=== PATIENT | male | born 1940 | race Caucasian/White ===

== ENCOUNTER 2017-05-03 02:56 | Emergency (ER) | payer MEDICARE ==
[2017-05-03] VITALS (8 sets, daily range): BP systolic 168–182; BP diastolic 73–90; PULSE 44–54; RESP 16–22; TEMP 97.3–97.7; O2SAT 97–99
[~2017-05-03] VITALS: Ht 185.4 cm; Wt 89.9 kg
[~2017-05-03 02:56] MED LIST: ASPI81 PO; LEVO75TA41 PO; LIPI80TA16 PO; MAGN400T19 PO; OMEG1CAP53 PO; OMEP20TA PO; RAMI10CA PO; SERT50 PO; TAB-TAB PO; TRIL135C PO; VITA100018 OR
[2017-05-03] MEDS ORDERED: SODIUM CHLOR 0.9% 1000 ML INJ 1,000 ML IV SCH (03:38)
--- NOTE | 2017-05-03 03:41 | PD ---
HPI Chief Complaint: Abdominal Pain Time Seen by Provider: 03:03 Travel History International Travel<30 days: No Contact w/Intl Traveler<30days: No Traveled to known affect area: No History of Present Illness HPI 76-year-old male presents to the emergency department for severe abdominal pain since 12:30 AM. Patient has had episode of vomiting. No report of hematemesis coffee-ground emesis or bilious emesis. Patient's had no diarrhea. Patient denies previous abdominal surgery. Patient does have history of hypertension and hypothyroidism. Patient denies tobaccoism. Patient denies any chest pain or shortness of breath. Patient's had no diaphoresis. Patient denies referred neck jaw back shoulder or arm pain. Patient does have history of CAD with prior CABG. Patient rates pain as 10 over 10 intensity. PFSH Past Medical History Narrative Medical CAD, [place], CABG, left lower lobe lobectomy, hypertension, impingement syndrome, orthopedic surgery; no tobacco use; nursing notes reviewed Cardiovascular Problems: Yes (HI) Medical other: Yes (IMPINGEMENT SYNDROME) Immunizations Current: Yes Tetanus Vaccination: Unknown Influenza Vaccination: No Past Surgical History Eye Surgery: Yes (CATARACT X 2) Genitourinary Surgery: Yes (PROSTATE CA) Thoracic Surgery: Yes (LLL LOBECTOMY, CABG X 3) Tonsillectomy: Yes Social History Alcohol Use: No Tobacco Use: No Substance Use: No Allergies-Medications (Allergen,Severity, Reaction): Coded Allergies: No Known Allergies (Verified Adverse Reaction, Unknown, 05/03/17) Reported Meds & Prescriptions Reported Meds & Active Scripts Active Narrative Medication Lisinopril Review of Systems Except as stated in HPI: all other systems reviewed are Neg Physical Exam Narrative GENERAL: Well-developed well-nourished male in obvious discomfort holding his abdomen. SKIN: Warm and dry. HEAD: Normocephalic. EYES: No scleral icterus. No injection or drainage. NECK: Supple, trachea midline. No JVD or lymphadenopathy. CARDIOVASCULAR: Decreased Regular rate and rhythm without murmurs, gallops, or rubs. RESPIRATORY: Breath sounds equal bilaterally. No accessory muscle use. GASTROINTESTINAL: Abdomen soft, right upper quadrant greater than right lower quadrant tenderness with voluntary guarding no rebound, nondistended. No palpable pulsatile mass. MUSCULOSKELETAL: No cyanosis, or edema. Bilateral radial and dorsalis pedis pulses 2+ to palpation. BACK: Nontender without obvious deformity. No CVA tenderness. Data Data Last Documented VS Vital Signs Date Time Temp Pulse Resp B/P (MAP) Pulse Ox O2 Delivery O2 Flow Rate FiO2 05/03/17 05:35 48 16 168/88 (114) 97 Room Air 05/03/17 03:24 97.6 Orders Orders Complete Blood Count With Diff (05/03/17 03:38) Comprehensive Metabolic Panel (05/03/17 03:38) Lipase (05/03/17 03:38) Prothrombin Time / Inr (Pt) (05/03/17 03:38) Act Partial Throm Time (Ptt) (05/03/17 03:38) Urinalysis - C+S If Indicated (05/03/17 03:38) Ct Abd/Pel W Iv Contrast(Rout) (05/03/17 03:38) Iv Access Insert/Monitor (05/03/17 03:38) Ecg Monitoring (05/03/17 03:38) Oximetry (05/03/17 03:38) Morphine Inj (Morphine Inj) (05/03/17 03:45) Ondansetron Inj (Zofran Inj) (05/03/17 03:45) Sodium Chlor 0.9% 1000 Ml Inj (Ns 1000 M (05/03/17 03:38) Sodium Chloride 0.9% Flush (Ns Flush) (05/03/17 03:45) Electrocardiogram (05/03/17 03:38) Chest, Single Ap (05/03/17 03:38) NPO (05/03/17 03:38) Type And Screen (05/03/17 03:39) Morphine Inj (Morphine Inj) (05/03/17 04:15) Iohexol 350 Inj (Omnipaque 350 Inj) (05/03/17 04:30) Troponin I (05/03/17 03:51) Hydromorphone Pf Inj (Dilaudid Pf Inj) (05/03/17 05:30) Ketorolac Inj (Toradol Inj) (05/03/17 07:00) Labs Laboratory Tests Test 05/03/17 03:51 05/03/17 05:32 White Blood Count 5.7 TH/MM3 Red Blood Count 5.00 MIL/MM3 Hemoglobin 15.0 GM/DL Hematocrit 44.6 % Mean Corpuscular Volume 89.2 FL Mean Corpuscular Hemoglobin 29.9 PG Mean Corpuscular Hemoglobin Concent 33.5 % Red Cell Distribution Width 12.7 % Platelet Count 215 TH/MM3 Mean Platelet Volume 9.2 FL Neutrophils (%) (Auto) 64.0 % Lymphocytes (%) (Auto) 24.3 % Monocytes (%) (Auto) 8.7 % Eosinophils (%) (Auto) 2.5 % Basophils (%) (Auto) 0.5 % Neutrophils # (Auto) 3.7 TH/MM3 Lymphocytes # (Auto) 1.4 TH/MM3 Monocytes # (Auto) 0.5 TH/MM3 Eosinophils # (Auto) 0.1 TH/MM3 Basophils # (Auto) 0.0 TH/MM3 CBC Comment DIFF FINAL Differential Comment Prothrombin Time 10.4 SEC Prothromb Time International Ratio 1.0 RATIO Activated Partial Thromboplast Time 25.0 SEC Blood Urea Nitrogen 22 MG/DL Creatinine 0.99 MG/DL Random Glucose 119 MG/DL Total Protein 7.5 GM/DL Albumin 3.6 GM/DL Calcium Level 8.8 MG/DL Alkaline Phosphatase 159 U/L Aspartate Amino Transf (AST/SGOT) 39 U/L Alanine Aminotransferase (ALT/SGPT) 61 U/L Total Bilirubin 0.8 MG/DL Sodium Level 138 MEQ/L Potassium Level 3.7 MEQ/L Chloride Level 102 MEQ/L Carbon Dioxide Level 26.1 MEQ/L Anion Gap 10 MEQ/L Estimat Glomerular Filtration Rate 73 ML/MIN Troponin I LESS THAN 0.02 NG/ML Lipase 259 U/L Urine Color YELLOW Urine Turbidity CLEAR Urine pH 7.0 Urine Specific [place] GREATER THAN 1.035 Urine Protein NEG mg/dL Urine Glucose (UA) NEG mg/dL Urine Ketones NEG mg/dL Urine Occult Blood NEG Urine Nitrite NEG Urine Bilirubin NEG Urine Leukocyte Esterase NEG Urine RBC 0-3 /hpf Urine WBC 0-2 /hpf Urine Squamous Epithelial Cells 0-5 /hpf Urine Bacteria NONE /hpf Microscopic Urinalysis Comment CULT NOT INDICATED MDM Medical Decision Making Medical Screen Exam Complete: Yes Emergency Medical Condition: Yes Medical Record Reviewed: Yes Interpretation(s) EKG sinus bradycardia rate 42 left axis deviation no acute ST elevation age- indeterminate lateral HI coags: wnl Vital Signs Date Time Temp Pulse Resp B/P (MAP) Pulse Ox O2 Delivery O2 Flow Rate FiO2 05/03/17 04:45 18 12/23/17 04:28 18 99 Room Air 05/03/17 04:11 45 20 170/90 (116) 99 Room Air 05/03/17 04:04 18 05/03/17 03:28 22 05/03/17 03:24 97.6 45 22 180/90 (120) 99 05/03/17 03:02 97.3 44 99 CBC & BMP Diagram 05/03/17 03:51 Total Protein 7.5, Albumin 3.6, Calcium Level 8.8, Alkaline Phosphatase 159 H, Aspartate Amino Transf (AST/SGOT) 39 H, Alanine Aminotransferase (ALT/SGPT) 61, Total Bilirubin 0.8 troponin i: 0.02, not elevated ua: sg 1.035 elevated Differential Diagnosis Abdominal pain cholecystitis abdominal aortic aneurysm pancreatitis appendicitis diverticulitis viscus perforation renal colic Narrative Course IV access obtained patient made nothing by mouth Zofran 4 mg IV administered morphine 3 mg IV administered maintenance IV fluids at 1 25 cc per hour administered patient made nothing by mouth status here pelvis ordered Patient noted to remain in sinus bradycardia states his heart rate normally runs 55-60 patient is monitored with heart rate of 45 EKG shows sinus bradycardia rate of 42 with left axis deviation no acute ST elevation nonspecific ST segment flattening laterally possible age-indeterminate infarct CBC is automated differential values in normal range Complete metabolic panel values grossly within normal limits lipase is normal Patient sent to CT; CT shows distended gallbladder with large single gallstone no ductal dilatation noted Patient continued complaining of pain Dilaudid 0.5 mg administered as he has artery received 6 mg of morphine At 6:[address] as officially read by radiologist identifies mild the distended gallbladder and gallstones in the gallbladder neck no ductal dilatation no wall thickening or pericholecystic fluid noted Pain at rest 2-3/10 in intensity with palpation 5-6/10 in intensity. care signed over to Dr Thomas Physician Communication Physician Communication call placed to employment instructional associate gs: Dr Ghotra Diagnosis Primary Impression: Biliary colic Meeta Holly MD May 03, 2017 03:41
[2017-05-03] MEDS ORDERED: ONDANSETRON HCL 4 MG/2 ML VIAL IVP ONE (03:45)
[2017-05-03] MEDS ORDERED: MORPHINE SULFATE 4 MG/ML INJ IV PUSH ONE ×2 (03:45→04:15)
[2017-05-03] MEDS: SODIUM CHLORIDE 0.9% FLUSH 10 ML FLUSH IV FLUSH PRN ×3 (03:59→07:26)
[2017-05-03 04:00] LABS: AUTOMATED NEUTROPHIL # 3.7 TH/MM3 (1.8-7.7); BASOPHIL % 0.5 % (0.0-2.0); EOSINOPHIL # 0.1 TH/MM3 (0-0.4); EOSINOPHIL % 2.5 % (0.0-4.0); HEMATOCRIT 44.6 % (39.0-51.0); LYMPH % 24.3 % (9.0-44.0); LYMPHOCYTE # 1.4 TH/MM3 (1.0-4.8); MEAN CELL VOLUME 89.2 FL (80.0-100.0); MEAN CORPUSCULAR HEMOGLOBIN 29.9 PG (27.0-34.0); MEAN CORPUSCULAR HGB CONC 33.5 % (32.0-36.0); MEAN PLATELET VOLUME 9.2 FL (7.0-11.0); MONO % 8.7 % (0.0-8.0); MONOCYTE # 0.5 TH/MM3 (0-0.9); PLATELET COUNT 215 TH/MM3 (150-450); RED CELL DISTRIBUTION WIDTH 12.7 % (11.6-17.2); WHITE BLOOD COUNT 5.7 TH/MM3 (4.0-11.0)
[2017-05-03 04:08] LABS: CHLORIDE 102 MEQ/L (98-107); SODIUM (NA) 138 MEQ/L (136-145)
[2017-05-03 04:11] LABS: CALCIUM 8.8 MG/DL (8.5-10.1)
[2017-05-03 04:12] LABS: ALBUMIN 3.6 GM/DL (3.4-5.0); BICARBONATE 26.1 MEQ/L (21.0-32.0); BLOOD UREA NITROGEN 22 MG/DL (7-18); GLUCOSE,RANDOM 119 MG/DL (74-106); LIPASE 259 U/L (73-393); PROTHROMBIN TIME - PATIENT 10.4 SEC (9.8-11.6)
[2017-05-03 04:14] LABS: ALT (GPT) 61 U/L (12-78)
[2017-05-03 04:15] LABS: AST (GOT) 39 U/L (15-37); CREATININE 0.99 MG/DL (0.60-1.30); GLOMERULAR FILTRATION RATE 73 ML/MIN (>89)
[2017-05-03 04:16] LABS: TOTAL BILIRUBIN ADULT 0.8 MG/DL (0.2-1.0); TOTAL PROTEIN 7.5 GM/DL (6.4-8.2)
[2017-05-03 04:17] LABS: ALKALINE PHOSPHATASE 159 U/L (45-117)
[2017-05-03] MEDS ORDERED: IOHEXOL 350 MG/ML 10 ML VIAL (for RAD DIAG) IVCONTRAST ONE (04:30)
[2017-05-03 05:30] LABS: TROPONIN I LESS THAN 0.02 NG/ML (0.02-0.05)
[2017-05-03] MEDS ORDERED: HYDROmorphone HCL PF 2 MG/ML VIAL IV PUSH ONE (05:30)
[2017-05-03 05:37] LABS: BILIRUBIN, URINE NEG (NEG); BLOOD, URINE NEG (NEG); GLUCOSE,URINE NEG (NEG); KETONE, URINE NEG (NEG); NITRITE,URINE NEG (NEG); URINE LEUKOCYTE ESTERASE NEG (NEG)
[2017-05-03 05:38] LABS: URINE COLOR YELLOW (YELLW/STRAW)
[2017-05-03 05:41] LABS: RBC, URINE 0-3 /hpf (0-3); SQUAMOUS EPITHELIAL CELL URINE 0-5 /hpf (0-5); WBC, URINE 0-2 /hpf (0-5)
--- NOTE | 2017-05-03 06:08 | RADRPT ---
EXAM DATE/TIME: 05/03/2017 04:28 [facility] COMPARISON: No previous studies available for comparison. INDICATIONS : Nausea, vomiting and abdominal pain for 4 hours IV CONTRAST: 96 cc Omnipaque 350 (iohexol) IV ORAL CONTRAST: No oral contrast ingested. RADIATION DOSE: 15.77 CTDIvol (mGy) MEDICAL HISTORY : Carcinoma, prostate. Cardiovascular disease SURGICAL HISTORY : Tonsillectomy. CABG ENCOUNTER: Initial ACUITY: 1 day PAIN SCALE: 10/10 LOCATION: abdominal TECHNIQUE: Volumetric scanning of the abdomen and pelvis was performed. Using automated exposure control and ad justment of the mA and/or kV according to patient size, radiation dose was kept as low as reasonably achievable to obtain optimal diagnostic quality images. DICOM format image data is available electro nically for review and comparison. FINDINGS: LOWER LUNGS: Scarring or atelectasis in both lung bases. Mild bronchiectasis. LIVER: Homogeneous density without lesion. There is no dilation of the biliary tree. Mildly distended gallb ladder with calcified stone in the gallbladder neck. SPLEEN: Normal size without lesion. PANCREAS: Within normal limits. KIDNEYS: Bilateral cortical cysts. No stone or hydronephrosis. ADRENAL GLANDS: Within normal limits. VASCULAR: There is no aortic aneurysm. BOWEL/MESENTERY: Distal colonic diverticula. No abnormal dilatation, wall thickening or focal inflammatory changes. Sm all hiatal hernia. ABDOMINAL WALL: Within normal limits. RETROPERITONEUM: There is no lymphadenopathy. BLADDER: No wall thickening or mass. REPRODUCTIVE: Prostate fiducials. No pelvic mass or free fluid. INGUINAL: There is no lymphadenopathy or hernia. MUSCULOSKELETAL: Within normal limits for patient age. CONCLUSION: Gallstone. Lung bases are atelectasis. Renal cysts. Wilner Gracia MD on May 03, 2017 at 6:03 Board Certified Radiologist. This report was verified electronically.
--- NOTE | 2017-05-03 06:51 | RADRPT ---
EXAM DATE/TIME: 05/03/2017 05:54 [facility] COMPARISON: CT ABDOMEN & PELVIS W CONTRAST, May 03, 2017, 4:28. INDICATIONS : Shortness of breath. MEDICAL HISTORY : None. SURGICAL HISTORY : CABG. ENCOUNTER: Initial ACUITY: 1 day PAIN SCORE: 3/10 LOCATION: Bilateral chest FINDINGS: Minimal bibasilar parenchymal opacity. Cardiac contours are satisfactory. Sternotomy wires are noted. CONCLUSION: Minimal basilar parenchymal opacities. Wilner Gracia MD on May 03, 2017 at 6:48 Board Certified Radiologist. This report was verified electronically.
[2017-05-03] MEDS ORDERED: KETOROLAC TROMETHAMINE 30 MG/ML (IVP) VIAL IV PUSH ONE (07:00)
--- NOTE | 2017-05-03 07:19 | PD ---
HPI Chief Complaint: Abdominal Pain Time Seen by Provider: 07:14 Travel History International Travel<30 days: No Contact w/Intl Traveler<30days: No Traveled to known affect area: No History of Present Illness HPI Care assumed from Dr. Holly, please see previous note IV access obtained patient made nothing by mouth Zofran 4 mg IV administered morphine 3 mg IV administered maintenance IV fluids at 1 25 cc per hour administered patient made nothing by mouth status here pelvis ordered Patient noted to remain in sinus bradycardia states his heart rate normally runs 55-60 patient is monitored with heart rate of 45 EKG shows sinus bradycardia rate of 42 with left axis deviation no acute ST elevation nonspecific ST segment flattening laterally possible age-indeterminate infarct CBC is automated differential values in normal range Complete metabolic panel values grossly within normal limits lipase is normal Patient sent to CT; CT shows distended gallbladder with large single gallstone no ductal dilatation noted Patient continued complaining of pain Dilaudid 0.5 mg administered as he has artery received 6 mg of morphine At 6:[address] as officially read by radiologist identifies mild the distended gallbladder and gallstones in the gallbladder neck no ductal dilatation no wall thickening or pericholecystic fluid noted Pain at rest 2-3/10 in intensity with palpation 5-6/10 in intensity PFSH Past Medical History Cardiovascular Problems: Yes (CT) Medical other: Yes (IMPINGEMENT SYNDROME) Immunizations Current: Yes Tetanus Vaccination: Unknown Influenza Vaccination: No Past Surgical History Eye Surgery: Yes (CATARACT X 2) Genitourinary Surgery: Yes (PROSTATE CA) Thoracic Surgery: Yes (LLL LOBECTOMY, CABG X 3) Tonsillectomy: Yes Social History Alcohol Use: No Tobacco Use: No Substance Use: No Allergies-Medications (Allergen,Severity, Reaction): Coded Allergies: No Known Allergies (Verified Adverse Reaction, Unknown, 05/03/17) Reported Meds & Prescriptions Reported Meds & Active Scripts Active Review of Systems General / Constitutional: No: Fever Eyes: No: Visual changes HENT: No: Headaches Cardiovascular: No: Chest Pain or Discomfort Respiratory: No: Shortness of Breath Gastrointestinal: Positive: Abdominal Pain Genitourinary: No: Dysuria Musculoskeletal: No: Pain Skin: No Rash Neurologic: No: Weakness Psychiatric: No: Depression Endocrine: No: Polydipsia Hematologic/Lymphatic: No: Easy Bruising Physical Exam Narrative GENERAL: Well-nourished, well-developed patient. SKIN: Focused skin assessment warm/dry. HEAD: Normocephalic. EYES: No scleral icterus. No injection or drainage. NECK: Supple, trachea midline. No JVD or lymphadenopathy. CARDIOVASCULAR: Regular rate and rhythm without murmurs, gallops, or rubs. RESPIRATORY: Breath sounds equal bilaterally. No accessory muscle use. GASTROINTESTINAL: Abdomen soft, non-tender, nondistended. MUSCULOSKELETAL: No cyanosis, or edema. BACK: Nontender without obvious deformity. No CVA tenderness. Data Data Last Documented VS Vital Signs Date Time Temp Pulse Resp B/P (MAP) Pulse Ox O2 Delivery O2 Flow Rate FiO2 05/03/17 07:05 97.7 54 16 182/82 (115) 98 Room Air Orders Orders Complete Blood Count With Diff (05/03/17 03:38) Comprehensive Metabolic Panel (05/03/17 03:38) Lipase (05/03/17 03:38) Prothrombin Time / Inr (Pt) (05/03/17 03:38) Act Partial Throm Time (Ptt) (05/03/17 03:38) Urinalysis - C+S If Indicated (05/03/17 03:38) Ct Abd/Pel W Iv Contrast(Rout) (05/03/17 03:38) Iv Access Insert/Monitor (05/03/17 03:38) Ecg Monitoring (05/03/17 03:38) Oximetry (05/03/17 03:38) Morphine Inj (Morphine Inj) (05/03/17 03:45) Ondansetron Inj (Zofran Inj) (05/03/17 03:45) Sodium Chlor 0.9% 1000 Ml Inj (Ns 1000 M (05/03/17 03:38) Sodium Chloride 0.9% Flush (Ns Flush) (05/03/17 03:45) Electrocardiogram (05/03/17 03:38) Chest, Single Ap (05/03/17 03:38) NPO (05/03/17 03:38) Type And Screen (05/03/17 03:39) Morphine Inj (Morphine Inj) (05/03/17 04:15) Iohexol 350 Inj (Omnipaque 350 Inj) (05/03/17 04:30) Troponin I (05/03/17 03:51) Hydromorphone Pf Inj (Dilaudid Pf Inj) (05/03/17 05:30) Ketorolac Inj (Toradol Inj) (05/03/17 07:00) Labs Laboratory Tests Test 05/03/17 03:51 05/03/17 05:32 White Blood Count 5.7 TH/MM3 Red Blood Count 5.00 MIL/MM3 Hemoglobin 15.0 GM/DL Hematocrit 44.6 % Mean Corpuscular Volume 89.2 FL Mean Corpuscular Hemoglobin 29.9 PG Mean Corpuscular Hemoglobin Concent 33.5 % Red Cell Distribution Width 12.7 % Platelet Count 215 TH/MM3 Mean Platelet Volume 9.2 FL Neutrophils (%) (Auto) 64.0 % Lymphocytes (%) (Auto) 24.3 % Monocytes (%) (Auto) 8.7 % Eosinophils (%) (Auto) 2.5 % Basophils (%) (Auto) 0.5 % Neutrophils # (Auto) 3.7 TH/MM3 Lymphocytes # (Auto) 1.4 TH/MM3 Monocytes # (Auto) 0.5 TH/MM3 Eosinophils # (Auto) 0.1 TH/MM3 Basophils # (Auto) 0.0 TH/MM3 CBC Comment DIFF FINAL Differential Comment Prothrombin Time 10.4 SEC Prothromb Time International Ratio 1.0 RATIO Activated Partial Thromboplast Time 25.0 SEC Blood Urea Nitrogen 22 MG/DL Creatinine 0.99 MG/DL Random Glucose 119 MG/DL Total Protein 7.5 GM/DL Albumin 3.6 GM/DL Calcium Level 8.8 MG/DL Alkaline Phosphatase 159 U/L Aspartate Amino Transf (AST/SGOT) 39 U/L Alanine Aminotransferase (ALT/SGPT) 61 U/L Total Bilirubin 0.8 MG/DL Sodium Level 138 MEQ/L Potassium Level 3.7 MEQ/L Chloride Level 102 MEQ/L Carbon Dioxide Level 26.1 MEQ/L Anion Gap 10 MEQ/L Estimat Glomerular Filtration Rate 73 ML/MIN Troponin I LESS THAN 0.02 NG/ML Lipase 259 U/L Urine Color YELLOW Urine Turbidity CLEAR Urine pH 7.0 Urine Specific [place] GREATER THAN 1.035 Urine Protein NEG mg/dL Urine Glucose (UA) NEG mg/dL Urine Ketones NEG mg/dL Urine Occult Blood NEG Urine Nitrite NEG Urine Bilirubin NEG Urine Leukocyte Esterase NEG Urine RBC 0-3 /hpf Urine WBC 0-2 /hpf Urine Squamous Epithelial Cells 0-5 /hpf Urine Bacteria NONE /hpf Microscopic Urinalysis Comment CULT NOT INDICATED MDM Medical Decision Making Medical Screen Exam Complete: Yes Emergency Medical Condition: Yes Differential Diagnosis Cholelithiasis, cholecystitis, bradycardia, biliary colic Narrative Course Patient resting comfortably, continues to have a small amount pain, tolerated fluid challenge. Dr Holly spoke to Dr Ghotra / Surgery who agreed to follow up if the patient is discharged. Last 72 hours Impressions Chest X-Ray 05/03/17337 Signed Impressions: Service Date/Time: Wednesday, May 03, 2017 05:54 - CONCLUSION: Minimal basilar parenchymal opacities. Wilner Gracia MD Abdomen/Pelvis CT 05/03/17337 Signed Impressions: Service Date/Time: Wednesday, May 03, 2017 04:28 - CONCLUSION: Gallstone. Lung bases are atelectasis. Renal cysts. Wilner Gracia MD Diagnosis Primary Impression: Biliary colic Patient Instructions: General Instructions Additional Instructions: Encouraged a liquid diet. Encouraged to avoid any fried or fatty foods. Return to emergency room with any onset of new symptoms. Follow-up with surgery / Dr Ghotra on Friday. Med/Other Pt SpecificInfo: Prescription(s) given Scripts Ondansetron (Zofran) 4 Mg Tab 4 MG PO Q6HR Y for NAUSEA OR VOMITING, #30 TAB 0 Refills Prov: Mack Thomas MD 05/03/17 Oxycodone-Acetaminophen (Percocet) 10-325 mg Tab 1 TAB PO Q4H Y for PAIN, #30 TAB 0 Refills Prov: Mack Thomas MD 05/03/17 Disposition: 01 DISCHARGE HOME Condition: Good Mack Thomas MD May 03, 2017 07:19
[2017-05-03] MEDS ORDERED: ZOFR4TAB PO (08:01)
[2017-05-03] MEDS ORDERED: PERC10TA27 PO (08:01)
--- NOTE | 2017-05-05 09:27 | EKG ---
Date Performed: 05/03/2017 Time Performed: 03:46:15 PTAGE: 76 years EKG: SINUS BRADYCARDIA WITH FIRST DEGREE AV BLOCK MARKED LEFT AXIS DEVIATION POSSIBLE RIGHT VENT RICULAR CONDUCTION DELAY LEFT VENTRICULAR HYPERTROPHY AND ST-T CHANGE POSSIBLE LATERAL MYOCARDIAL INF ARCTION ABNORMAL ECG NO PREVIOUS TRACING DOCTOR: Rica Singh Interpretating Date/Time 05/05/2017 09:26:19
== END 2017-05-03 08:44 | disposition home or self-care (01) ==
LOC: PHED 02:56
DX: K80.70 Calculus of gallbladder and bile duct without cholecystitis without obstruction (principal); R11.2 Nausea with vomiting, unspecified; E03.9 Hypothyroidism, unspecified; I10 Essential (primary) hypertension; I25.10 Atherosclerotic heart disease of native coronary artery without angina pectoris; R94.31 Abnormal electrocardiogram [ECG] [EKG]
CPT/HCPCS: 71010; 74177; 80053; 81001; 83690; 84484; 85025; 85610; 85730; 86850; 86900; 86901; 93005; 96374; 96375; 99285; J1170; J1885; J2270; J2405; J7030; Q9967

== ENCOUNTER 2017-05-06 11:58 | Inpatient (IN) | payer MEDICARE ==
[~2017-05-06] VITALS: Ht 185.4 cm; Wt 89.0 kg
[~2017-05-06 11:58] MED LIST changes: -ASPI81 PO; -LEVO75TA41 PO; -LIPI80TA16 PO; -MAGN400T19 PO; -OMEG1CAP53 PO; -OMEP20TA PO; +PERC10TA27 PO; -RAMI10CA PO; -SERT50 PO; -TAB-TAB PO; -TRIL135C PO; -VITA100018 OR; +ZOFR4TAB PO
[2017-05-06] MEDS ORDERED: LACTATED RINGER'S 1000 ML INJ 1,000 ML IV ONE (12:00)
[2017-05-06] MEDS ORDERED: ePHEDrine/NS 25 MG/5 ML SYRINGE IV ONE (12:00)
[2017-05-06] MEDS ORDERED: DEXAMETHASONE SOD PHOS 4 MG/ML VIAL IV ONE (12:00)
[2017-05-06] MEDS ORDERED: LIDOCAINE HCL 1% PF 5 ML SYRINGE OTHER ONE (12:00)
[2017-05-06] MEDS ORDERED: ONDANSETRON HCL 4 MG/2 ML VIAL IV ONE (12:00)
[2017-05-06] MEDS ORDERED: NEOSTIGMINE 5 MG/5 ML SYRINGE IV PUSH ONE (12:00)
[2017-05-06] MEDS ORDERED: PHENYLEPH/NS 1000 MCG/10 ML SYR IV ONE (12:00)
[2017-05-06] MEDS ORDERED: GLYCOPYRROLATE 1 MG/5 ML SYRINGE IV PUSH ONE (12:00)
[2017-05-06] MEDS ORDERED: ROCURONIUM INJ 50 MG/5 ML SYRINGE IV PUSH ONE (12:00)
[2017-05-06] MEDS ORDERED: PROPOFOL 200 MG/20 ML AMP IV ONE (12:00)
[2017-05-06] MEDS ORDERED: MORPHINE SULFATE 2 MG/ML INJ IV PUSH PRN (12:30)
[2017-05-06] MEDS ORDERED: ONDANSETRON HCL 4 MG/2 ML VIAL IV PUSH PRN (12:30)
[2017-05-06] MEDS ORDERED: SODIUM CHLORIDE 0.9% FLUSH 10 ML FLUSH IV FLUSH PRN (12:30)
[2017-05-06 12:43] VITALS: BP 99/54; PULSE 74; RESP 17; TEMP 96.1; O2SAT 96
[2017-05-06] MEDS: SODIUM CHLOR 0.9% 1000 ML INJ 1,000 ML IV SCH ×2 (13:17→18:39)
[2017-05-06] MEDS: ceFAZolin 2 GM PREMIX 50 ML IV ONE ×2 (13:17→16:34)
[2017-05-06 14:10] LABS: AUTOMATED NEUTROPHIL # 11.1 TH/MM3 (1.8-7.7); BASOPHIL % 0.2 % (0.0-2.0); EOSINOPHIL % 0.1 % (0.0-4.0); HEMATOCRIT 44.4 % (39.0-51.0); HEMOGLOBIN 15.2 GM/DL (13.0-17.0); LYMPH % 1.9 % (9.0-44.0); LYMPHOCYTE # 0.2 TH/MM3 (1.0-4.8); MEAN CELL VOLUME 90.6 FL (80.0-100.0); MEAN CORPUSCULAR HEMOGLOBIN 30.9 PG (27.0-34.0); MEAN CORPUSCULAR HGB CONC 34.1 % (32.0-36.0); MEAN PLATELET VOLUME 9.5 FL (7.0-11.0); MONO % 5.3 % (0.0-8.0); MONOCYTE # 0.6 TH/MM3 (0-0.9); NEUT % 92.5 % (16.0-70.0); PLATELET COUNT 211 TH/MM3 (150-450); RED CELL DISTRIBUTION WIDTH 13.7 % (11.6-17.2)
[2017-05-06 14:27] LABS: INTERNATIONAL NORMALIZED RATIO 1.1 RATIO
[2017-05-06 14:28] LABS: ALBUMIN 2.8 GM/DL (3.4-5.0); ALT (GPT) 59 U/L (12-78); AST (GOT) 67 U/L (15-37); BICARBONATE 26.5 MEQ/L (21.0-32.0); BLOOD UREA NITROGEN 28 MG/DL (7-18); CALCIUM 8.9 MG/DL (8.5-10.1); CHLORIDE 98 MEQ/L (98-107); CREATININE 1.14 MG/DL (0.60-1.30); GLOMERULAR FILTRATION RATE 62 ML/MIN (>89); GLUCOSE,RANDOM 104 MG/DL (74-106); LIPASE 95 U/L (73-393); SODIUM (NA) 132 MEQ/L (136-145)
[2017-05-06 14:30] LABS: ALKALINE PHOSPHATASE 428 U/L (45-117); TOTAL BILIRUBIN ADULT 5.8 MG/DL (0.2-1.0); TOTAL PROTEIN 6.9 GM/DL (6.4-8.2)
[2017-05-06] MEDS ORDERED: BUPIVACAINE/EPINEPHRINE 0.25% PF 30 ML VIAL ONE (14:33)
[2017-05-06 15:35] VITALS: BP 154/71; PULSE 61; RESP 17; TEMP 98.2; O2SAT 93
[2017-05-06] MEDS ORDERED: LACTATED RINGER'S 1000 ML IV PRN (15:45)
[2017-05-06] MEDS ORDERED: SODIUM CHLORID 0.9% 500 ML IV PRN (15:45)
[2017-05-06 16:00] VITALS: BP 154/71; PULSE 61; RESP 17; TEMP 98; O2SAT 93
[2017-05-06] MEDS ORDERED: metroNIDAZOLE 500 MG INJ 100 ML IV ONE (16:34)
[2017-05-06] MEDS ORDERED: ATOR80TA45 PO (16:55)
[2017-05-06] MEDS ORDERED: OMEG1CAP28 PO (16:55)
[2017-05-06] MEDS ORDERED: SERT-132 PO (16:55)
[2017-05-06] MEDS ORDERED: LEVO75TA3 PO (16:55)
[2017-05-06] MEDS ORDERED: ASPI-516 CHEW (16:55)
[2017-05-06] MEDS ORDERED: LISI-515 PO (16:55)
--- NOTE | 2017-05-06 18:00 | RADRPT ---
EXAM DATE/TIME: 05/06/2017 17:36 [facility] COMPARISON: No previous studies available for comparison. INDICATIONS : Acute cholecystitis. FLUORO TIME: 0.07 minutes IMAGE COUNT: 1 MEDICAL HISTORY : Carcinoma, prostate. Cardiovascular disease SURGICAL HISTORY : Tonsillectomy. CABG ENCOUNTER: Initial ACUITY: 3 days PAIN SCORE: Non-responsive. LOCATION: Right upper quadrant abdomen PROCEDURE: CHOLANGIOGRAM, OPERATIVE 1. Intraoperative cholangiogram. In the operating room, the cystic duct stump was injected and radiographs obtained. The examination demonstrates no filling defects in the common bile duct. .CONCLUSION: No evidence of common duct stone. Abhinav Joyce MD on May 06, 2017 at 17:58 Board Certified Radiologist. This report was verified electronically.
[2017-05-06] MEDS ORDERED: DO NOT ADM ANY ANTICOAGULANT DRUGS PRN (18:22)
[2017-05-06] MEDS ORDERED: *morphine SULFATE 4 MG/ML PERIprocedure ONLY ONE (18:26)
--- NOTE | 2017-05-06 18:28 | PD.OP ---
Operative Report Date of Surgery: May 06, 2017 Preoperative Diagnosis: acute and chronic calculous cholecystitis elevated LFTs [facility] Postoperative Diagnosis: same, CBD stones Procedure: Lap eber with IOC. [facility] repair. Anesthesia: general Surgeon: Narinder Jones [employer] Coordinator(s): Arash German Operation and Findings: severe calculous cholecystitis, gangrenous changes. IOC demonstrates several filling defects in CBD, with obstruction. EBL 500 ml. Narinder Jones MD May 06, 2017 18:28
[2017-05-06] MEDS ORDERED: Post-op Orders (for Pharmacy) XX ONE (18:45)
--- NOTE | 2017-05-06 19:55 | MP ---
cc: LISA ENAMORADO MD, LOUIS M. MD DATE OF SURGERY: 05/06/2017 PREOPERATIVE DIAGNOSIS: 1. Acute and chronic calculous cholecystitis, elevated liver function test. 2. Umbilical hernia POSTOPERATIVE DIAGNOSES 1. Acute and chronic calculous cholecystitis, elevated liver function test. 2. Common bile duct stones with common bile duct obstruction. 3. Umbilical hernia. PROCEDURE: 1. Laparoscopic cholecystectomy with intraoperative cholangiography. 2. Open repair, umbilical hernia. SURGEON Dr. Lisa Enamorado ANESTHESIA: General. INDICATIONS: The patient is a pleasant 76 year-old gentleman who was seen in the emergency department on 05/03/2017 in [place] due to severe abdominal pain, nausea, emesis. CT demonstrated distended gallbladder with a gallstone in the gallbladder neck and pericholecystic inflammatory changes. It was decided the patient could go home with Percocet. Since then he has been very ill. He has had minimal oral intake. He came to my office today for evaluation where he was found to have right upper quadrant tenderness and scleral icterus. He is sent over to the hospital for admission, IV hydration and laparoscopic cholecystectomy with intraoperative cholangiography. INTRAOPERATIVE FINDINGS Severe calculous cholecystitis. Gallbladder with gangrenous changes. The gallbladder was very distended attached to the diaphragm on the right side and it was covered in inflammatory omental rind and transverse colon. Intraoperative cholangiogram demonstrated several filling defects in the common bile duct with obstruction of the common bile duct. Gallbladder was removed and sent to pathology. Estimated blood loss 500 mL. 10-Micronesian fluted drain placed in subhepatic position. DESCRIPTION OF PROCEDURE IN DETAIL The patient identified as Kvng Bryant, taken to the operating room, placed in supine position. Sequential compression devices were placed on bilateral lower extremities. Following induction of adequate general endotracheal anesthesia, the patient's abdomen was prepped and draped in usual sterile fashion with Betadine. A time-out procedure was performed. Following completion of time-out procedure to everyone's satisfaction within the room local anesthetic was placed. A supraumbilical transverse incision about 4 cm in length was carried out with a scalpel and the umbilical skin was lifted off the herniated preperitoneal fatty tissue. The umbilical hernia defect was about 2 cm in size. This extended slightly superiorly and the peritoneum entered with the surgeon's finger through the preperitoneal fat. The [employer] Balloon Arizmendi trocar was placed in the peritoneal cavity. It balloon inflated with CO2 insufflation to a level of 15 mmHg ensued. The patient was placed in reverse Trendelenburg position turned to the left and two upper abdominal 5 mm trocars were placed in the peritoneal cavity under direct laparoscopic view after incision of skin with a scalpel. Ultimately a third 5 mm trocar was placed in the right lateral abdomen under direct laparoscopic view after incision of the skin with a scalpel. There was a large omental rind which included the transverse colon which covered the gallbladder which was adherent with gangrenous rind to the right hemidiaphragm. It was able to be mobilized with blunt dissection. The gallbladder brought inferiorly. Using the Obdulia Flex liver retractor, inflammatory rind of fat was retracted inferiorly which allowed for dissection of the gallbladder. In order to facilitate this, the gallbladder was decompressed through an opening in its undersurface using the harmonic scalpel and the suction device. The gallbladder is then removed from the gallbladder fossa in a dome down technique using a harmonic scalpel and suction dissection. This resulted in pretty much continuous ooze until the cystic artery was divided with the harmonic scalpel. The cystic duct was identified at its juncture with the gallbladder and a 5 mm clip was placed across the gallbladder cystic duct junction. The cystic duct was hemisected with a scissor. The percutaneous introducer for the cholangiogram catheter was then placed through a separate small stab incision in the right upper quadrant and the [employer] cholangiogram catheter was placed into the cystic duct. Intraoperative cholangiography was then performed using C-arm fluoroscopy and contrast to fill the proximal ducts which were relatively nondilated but the common bile duct itself was dilated in at least three filling defects approximately 8 millimeters in size were identified consistent with common bile duct stones. No emptying of contrast into the duodenum was witnessed. Cholangiogram catheter was removed. 0-PDS and 0 Vicryl Endoloops were placed across the distal duct and the duct where it was hemisected was completely divided with the harmonic scalpel. The large distended gangrenous gallbladder was then placed into an Endoretriever bag and removed through the umbilical fascial defect which had to be extended superiorly to facilitate removal of this large gallbladder. It was passed off the field for pathologic evaluation. All bloody and bilious drainage was then suctioned out, copiously irrigated and suctioned out repeatedly. The gallbladder fossa which was irritated and had some mild ooze was covered with Matty hemostatic agent. Due to the inflammatory nature of the procedure, a 10-Micronesian fluted drain was placed through the right lateral 5 mm trocar into the subhepatic position, held in place at the level of the skin with a 3-0 nylon drain stitch. The remaining trocars were removed under direct visualization. There was no evidence of bleeding from trocar sites. The abdomen was desufflated through the umbilical port which was then removed. The umbilical fascial incision was closed with multiple interrupted inverted 0 Prolene sutures. The port sites were irrigated copiously with saline. The umbilicus was reformed with interrupted 2-0 Vicryl. Skin incisions were approximated with 4-0 Monocryl subcuticular sutures, Mastisol and half inch brown Steri-Strips. Gauze and tape were placed around the drain exit site. The patient tolerated the procedure without apparent complication. Sponge, needle and instrument counts were correct at the end of the case. MD ARIAS Johns/JOSE /6:09 PM /7:09 PM
[2017-05-06 20:00] VITALS: BP 145/67; PULSE 85; RESP 18; TEMP 96.5; O2SAT 92
[2017-05-06 20:01] VITALS: O2SAT 95
[2017-05-06] MEDS: ACETAMINOPHEN 1000 MG/100 ML 100 ML IV SCH (20:38)
[2017-05-06] MEDS: LACTATED RINGER'S 1000 ML INJ 1,000 ML IV SCH (20:39)
[2017-05-06] MEDS: SODIUM CHLORIDE 0.9% FLUSH 10 ML FLUSH IV FLUSH SCH (21:00)
[2017-05-07] VITALS (8 sets, daily range): BP systolic 144–189; BP diastolic 70–91; PULSE 54–62; RESP 17–20; TEMP 95.8–98.3; O2SAT 90–97
[2017-05-07] MEDS: metroNIDAZOLE 500 MG INJ 100 ML IV SCH ×3 (00:51→17:28)
[2017-05-07] MEDS: ACETAMINOPHEN 1000 MG/100 ML 100 ML IV SCH ×4 (02:21→19:35)
[2017-05-07] MEDS: LACTATED RINGER'S 1000 ML INJ 1,000 ML IV SCH ×4 (05:58→21:12)
[2017-05-07] MEDS ORDERED: HYDROmorphone HCL PF 2 MG/ML VIAL IV PRN (07:00)
[2017-05-07] MEDS: SODIUM CHLORIDE 0.9% FLUSH 10 ML FLUSH IV FLUSH SCH ×2 (07:52→19:35)
--- NOTE | 2017-05-07 07:59 | HHI.PR ---
Subjective Subjective Notes feels much better. Morphine makes him hallucinate. Objective Vitals/I&O Vital Signs Date Time Temp Pulse Resp B/P (MAP) Pulse Ox O2 Delivery O2 Flow Rate FiO2 05/07/17 04:25 97.1 56 17 144/70 (94) 93 05/06/17 20:01 Nasal Cannula 2.00 Labs Laboratory Tests Test 05/06/17 12:45 White Blood Count 12.0 Red Blood Count 4.90 Hemoglobin 15.2 Hematocrit 44.4 Mean Corpuscular Volume 90.6 Mean Corpuscular Hemoglobin 30.9 Mean Corpuscular Hemoglobin Concent 34.1 Red Cell Distribution Width 13.7 Platelet Count 211 Mean Platelet Volume 9.5 Neutrophils (%) (Auto) 92.5 Lymphocytes (%) (Auto) 1.9 Monocytes (%) (Auto) 5.3 Eosinophils (%) (Auto) 0.1 Basophils (%) (Auto) 0.2 Neutrophils # (Auto) 11.1 Lymphocytes # (Auto) 0.2 Monocytes # (Auto) 0.6 Eosinophils # (Auto) 0.0 Basophils # (Auto) 0.0 CBC Comment DIFF FINAL Differential Comment Prothrombin Time 11.0 Prothromb Time International Ratio 1.1 Blood Urea Nitrogen 28 Creatinine 1.14 Random Glucose 104 Total Protein 6.9 Albumin 2.8 Calcium Level 8.9 Alkaline Phosphatase 428 Aspartate Amino Transf (AST/SGOT) 67 Alanine Aminotransferase (ALT/SGPT) 59 Total Bilirubin 5.8 Sodium Level 132 Potassium Level 4.0 Chloride Level 98 Carbon Dioxide Level 26.5 Anion Gap 8 Estimat Glomerular Filtration Rate 62 Lipase 95 Cardiovascular: Regular Lungs: Clear, Other (mild expiratory wheeze L side. Clears after cough.) Abdomen: Non-distended, Other (drain with serosanguinous drainage. Dressing dry at umbilicus. Two other incisions clean and dry.), Post-op tenderness Extremities: No edema, Perfused A/P Assessment and Plan POD 1 lap eber with IOC, gangrenous cholecystitis and CBD stones. For ERCP this morning. D/W patient and in detail. Narinder Jones MD May 07, 2017 07:59
--- NOTE | 2017-05-07 09:15 | MB ---
cc: RA BUSTOS DATE OF CONSULTATION 05/07/2017 DATE OF [address] aNrinder Jones REASON FOR CONSULTATION Elevated LFTs biliary CBD stones. HISTORY OF PRESENT ILLNESS This is a 76-year-old gentleman who looks younger than his stated age who came into the emergency room on May 03 with right upper quadrant abdominal pain. He was found to have a dilated gallbladder and suspected cholecystitis. He was treated conservatively and then seen as an outpatient for an elective cholecystectomy. Once he was evaluated, it was deemed that he was significantly symptomatic, therefore he was sent to the emergency room for further workup, evaluation and a cholecystectomy. He underwent a laparoscopic cholecystectomy on 05/06/1927 with an IOC which was significant for dilated common bile duct with multiple filling defects consistent with choledocholithiasis. GI was consulted for further workup and treatment with an ERCP. Since the surgery, the patient feels somewhat improved. His right upper quadrant abdominal pain has improved. The fevers and chills have resolved. He continues to have elevated LFTs. His medical is significant for hypertension, hypothyroidism, history of coronary artery disease with bypass surgery. PAST SURGICAL HISTORY 1. Coronary bypass graft 2. Left lower lobectomy 3. Orthopedic surgery 4. Cataract surgery ALLERGIES NO KNOWN DRUG ALLERGIES. MEDICATIONS Please see ALAN for a complete and accurate list. SOCIAL HISTORY No alcohol, tobacco or drug abuse. FAMILY HISTORY No GI malignancies. REVIEW OF SYSTEMS A twelve-point review of systems was obtained by me and is negative or noncontributory except for the above-mentioned HPI. PHYSICAL EXAMINATION VITAL SIGNS: Temperature 97.1, heart rate of 56, respirations 17, blood pressure 144/70, O2 sat 92 worsened on room air. GENERAL: Alert and oriented in no acute distress. HEAD, EYES, EARS, NOSE, AND THROAT: Pupils, eyes equal, round, and reactive to light. Mucosa moist. Atraumatic. NECK: Supple, nontender. No carotid bruits noted. No thyromegaly. CARDIOVASCULAR: Regular rate and rhythm. Soft murmur heard. RESPIRATORY: Clear to auscultation bilaterally. No wheezing heard. ABDOMEN: Soft, nontender. No rebound appreciated. No hepatosplenomegaly noted. No CVA angle tenderness noted. GENITOURINARY: Bladder normal. MUSCULOSKELETAL: Equal upper and lower extremity strength. NEUROLOGIC: Alert and oriented. No focal deficits. PSYCHIATRIC: Cooperative, appropriate mood and affect. LYMPH NODES: No abnormal lymphadenopathy noted. LABORATORY DATA WBC 12.0, hemoglobin 15.2, platelet count 211. Sodium 137, potassium 4.0, creatinine of 1.14, total bili 5.8, AST 67, ALT 59, alk phos 428, lipase 95, INR 1.1. IMPRESSION 1. Choledocholithiasis found on an intraoperative cholangiogram. 2. Status post laparoscopic cholecystectomy of a gangrenous gallbladder for acute cholecystitis postoperative day #1. 3. Elevated LFTs secondary to above. RECOMMENDATIONS 1. Keep n.p.o.. 2. Plan for ERCP with plan for stone extraction. Discussed the risks, benefits and alternatives with the patient and his at bedside. They are agreeable to proceeding with the procedure, but not limited to the risk of prolonged hospitalization, pancreatitis requiring prolonged hospitalization and surgical intervention were all explained to the patient. They accepted the risks. Further recommendations to follow depending on results of the above. MD RILEY Peguero/ROCK /8:16 AM /8:42 AM
--- NOTE | 2017-05-07 10:19 | GIPROC ---
[facility] [address] [facility]. [facility], [id number] ERCP PROCEDURE REPORT EXAM DATE: 05/07/2017 PATIENT NAME: Kvng Bryant MR #: [id number] BIRTHDATE: 1940 ATTENDING: Carola Carson MD ORDER #: [id number] PRINTED [employer]AR[employer] PLASMA ETCHER: Saumya Mari and Minda Kiser STATUS: inpatient INDICATIONS: The patient is a 76 yr old male here for an ERCP due to therapy of bile duct stone(s) PROCEDURE PERFORMED: ERCP with removal of calculus/calculi ERCP with sphincterotomy/papillotomy MEDICATIONS: Per Anesthesia and None. CONSENT: The patient understands the risks and benefits of the procedure and understands that these risks include, but are not limited to: sedation, allergic reaction, infection, perforation and/or bleeding. Alternative means of evaluation and treatment include, among others: physical exam, x-rays, and/or surgical intervention. The patient elects to proceed with this endoscopic procedure. medical equipment was checked for proper function. Hand hygiene and appropriate measures for infection prevention was taken. After the risks, benefits and alternatives of the procedure were thoroughly explained, Informed was verified, confirmed and timeout was successfully executed by the treatment team. With the patient in left semi-prone position, medications were administered intravenously.The Pentax [id number] was passed from the mouth into the esophagus and further advanced from the esophagus into the stomach. From stomach scope was directed to the second portion of the duodenum. Major papilla was aligned with the duodenoscope. The scope position was confirmed fluoroscopically. Rest of the findings/therapeutics are given below. The scope was then completely withdrawn from the patient and the procedure completed. The pulse, BP, and O2 saturation were monitored and documented by the physician and the nursing staff throughout the entire procedure. The patient was cared for as planned according to standard protocol. The patient was then discharged to recovery in stable condition and with appropriate post procedure care. The ampulla was located the second portion of the duodenum. Bile was seen draining from the ampulla. There was a dilation of the CBD up to 12mm. Contrast was injected into the bile duct and a cholangiogram obtained. Bile duct cannulation was attempted using the sphinctertome with guidewire. Cannulation of the bile duct was performed with ease. Deep cannulation with the sphincterotome was successfully achieved. With guidewire in the bile duct, a large 12 mm biliary sphincterotomy was performed using the sphincterotome. Using a stone extraction balloon the bile duct was swept several times. Multiple stone fragments were removed from the bile duct successfully. A balloon occlusion cholangiogram was performed. no futher filling defects were noted. ADVERSE EVENT: There were no complications. IMPRESSIONS: 1. Bile was seen draining from the ampulla 2. Dilated common bile duct 3. S/p sphincterotomy and extract. 4. Multiple small stones/fragments. RECOMMENDATIONS: 1. Return to floor 2. Monitor LFTs 3. Diet per surgical services (pt post Candie POD 1) 4. No further GI work up/treatment planned at this time REPEAT EXAM: NONE Carola Carson MD eSigned: Carola Carson MD 05/07/2017 10:18 AM cc: Narinder Jones M.D. PATIENT NAME: Kvng Bryant MR#: [id number]
[2017-05-07] MEDS ORDERED: DO NOT ADM ANY ANTICOAGULANT DRUGS PRN ×2 (10:31→13:15)
[2017-05-07] MEDS ORDERED: *ENALAPRILAT 1.25 MG/ML VIAL PERIprocedural Use ONLY ONE ×2 (10:35→11:02)
[2017-05-07] MEDS ORDERED: *PROMETHAZINE 25 MG/ML VIAL PERIprocedural use ONLY ONE (10:51)
[2017-05-07] MEDS ORDERED: hydrALAZINE HCL 20 MG/ML VIAL ONE (11:36)
[2017-05-07] MEDS ORDERED: PROPOFOL 200 MG/20 ML AMP IV ONE (12:00)
[2017-05-07] MEDS ORDERED: ROCURONIUM INJ 50 MG/5 ML SYRINGE IV PUSH ONE (12:00)
[2017-05-07] MEDS ORDERED: ONDANSETRON HCL 4 MG/2 ML VIAL IV PUSH ONE (12:00)
[2017-05-07] MEDS ORDERED: NEOSTIGMINE 5 MG/5 ML SYRINGE IV PUSH ONE (12:00)
[2017-05-07] MEDS ORDERED: GLYCOPYRROLATE 1 MG/5 ML SYRINGE IV PUSH ONE (12:00)
[2017-05-07] MEDS ORDERED: LIDOCAINE HCL 1% PF 5 ML SYRINGE OTHER ONE (12:00)
[2017-05-07] MEDS: PANTOPRAZOLE SODIUM 40 MG VIAL IV PUSH SCH (12:56)
[2017-05-07] MEDS ORDERED: hydrALAZINE HCL 20 MG/ML VIAL IV SCH (13:15)
[2017-05-07 15:08] LABS: AUTOMATED NEUTROPHIL # 11.2 TH/MM3 (1.8-7.7); BASOPHIL % 0.2 % (0.0-2.0); HEMATOCRIT 33.9 % (39.0-51.0); HEMOGLOBIN 11.5 GM/DL (13.0-17.0); LYMPH % 4.3 % (9.0-44.0); LYMPHOCYTE # 0.5 TH/MM3 (1.0-4.8); MEAN CELL VOLUME 89.4 FL (80.0-100.0); MEAN CORPUSCULAR HEMOGLOBIN 30.2 PG (27.0-34.0); MEAN CORPUSCULAR HGB CONC 33.8 % (32.0-36.0); MEAN PLATELET VOLUME 9.5 FL (7.0-11.0); MONO % 5.8 % (0.0-8.0); MONOCYTE # 0.7 TH/MM3 (0-0.9); NEUT % 89.7 % (16.0-70.0); PLATELET COUNT 165 TH/MM3 (150-450); RED CELL DISTRIBUTION WIDTH 13.6 % (11.6-17.2); WHITE BLOOD COUNT 12.5 TH/MM3 (4.0-11.0)
[2017-05-07 15:35] LABS: BICARBONATE 23.2 MEQ/L (21.0-32.0); CALCIUM 8.3 MG/DL (8.5-10.1); CREATININE 0.83 MG/DL (0.60-1.30)
[2017-05-08] VITALS (7 sets, daily range): BP systolic 150–199; BP diastolic 56–91; PULSE 44–51; RESP 17–21; TEMP 96.5–98.6; O2SAT 93–97
[2017-05-08] MEDS: ACETAMINOPHEN 1000 MG/100 ML 100 ML IV SCH ×4 (01:43→22:08)
[2017-05-08] MEDS: LACTATED RINGER'S 1000 ML INJ 1,000 ML IV SCH ×2 (03:52→08:44)
[2017-05-08 06:06] LABS: ALBUMIN 2.1 GM/DL (3.4-5.0); ALKALINE PHOSPHATASE 577 U/L (45-117); ALT (GPT) 102 U/L (12-78); AST (GOT) 235 U/L (15-37); BICARBONATE 24.3 MEQ/L (21.0-32.0); BLOOD UREA NITROGEN 27 MG/DL (7-18); CALCIUM 8.4 MG/DL (8.5-10.1); CHLORIDE 107 MEQ/L (98-107); CREATININE 0.88 MG/DL (0.60-1.30); GLOMERULAR FILTRATION RATE 84 ML/MIN (>89); GLUCOSE,RANDOM 98 MG/DL (74-106); SODIUM (NA) 138 MEQ/L (136-145); TOTAL PROTEIN 5.8 GM/DL (6.4-8.2)
[2017-05-08] MEDS: PANTOPRAZOLE SODIUM 40 MG VIAL IV PUSH SCH (08:42)
[2017-05-08] MEDS: SODIUM CHLORIDE 0.9% FLUSH 10 ML FLUSH IV FLUSH SCH ×2 (08:44→22:09)
--- NOTE | 2017-05-08 09:12 | RADRPT ---
EXAM DATE/TIME: 05/07/2017 00:00 [place] COMPARISON: CHOLANGIOGRAM OPERATIVE, May 06, 2017, 17:36. INDICATIONS : Common bile duct sludge. FLUORO TIME: 3.43 minutes IMAGE COUNT: [id number] CONTRAST: Instilled by Ordering Physician MEDICAL HISTORY : None. SURGICAL HISTORY : CABG. ENCOUNTER: Initial ACUITY: 1 day PAIN SCORE: Non-responsive. LOCATION: Bilateral Abdomen FINDINGS: An ERCP was performed by the ordering physician. The images demonstrate opacification of the common bile duct and central biliary ducts. Restricted bi liary intestinal transit is noted. Cystic duct inserts low into the common bile duct. Balloon extraction of sludge within the common bile is noted. CONCLUSION: ERCP as above. Naldo Brennan MD on May 08, 2017 at 9:04 Board Certified Radiologist. This report was verified electronically.
[2017-05-08] MEDS: LEVOTHYROXINE SODIUM 75 MCG TAB PO SCH (10:46)
[2017-05-08] MEDS: LISINOPRIL 20 MG TAB PO SCH (10:46)
[2017-05-08] MEDS: ATORVASTATIN 80 MG TAB PO SCH (10:46)
[2017-05-08] MEDS: SERTRALINE HCL 50 MG TAB PO SCH (10:49)
--- NOTE | 2017-05-08 12:08 | HHI.GIFU ---
GI Follow-up Note Consult Follow-up Subjective: Patient laying in bed comfortably, no new complaints, feels well. no abdo pain. no n/v no fever chills UBALDO drain min outpt. Objective: PHYSICAL EXAMINATION: Vitals signs stable No fever HEENT: Pupils round and reactive to light; normocephalic; atraumatic; no jaundice. Throat is clear. NECK: Neck is supple, no JVD, no lymphadenopathy. CHEST: Chest is clear to auscultation and percussion. CARDIAC: Regular rate and rhythm with no murmur gallop or rubs. ABDOMEN: Soft, nondistended, nontender; no hepatosplenomegaly; bowel sounds are present in all four quadrants. EXTREMITIES: No clubbing, cyanosis, or edema. SKIN: Normal; no rash; no jaundice. DISK OPERATOR: No focal deficits; alert and oriented times three. Available Data (labs, X- Rays, Procedures) : reviewed Lfts elevated Tb 4, [id number], WQB748, ALP 577 ASSESSMENT/PLAN: 1. Acute cholecystitis s/p eber 2. CBD stones s/p ERCP 3. Elevated lfts - pt states has had elevated lfts in the past, unclear reasons. meds vs viral hep, vs autoimmune vs hereditary PLAN: 1. Diet as tolerated 2. Will order CMP, Pt/INR, AMA, bartolo, ceuloplamin, asma, hepatitis profile. 3. Labs can be followed outpt. (as long as lfts are down trending) It was a pleasure seeing Kvng Bryant. Thank you for this consult. Entered by: Carola Silva MD May 08, 2017 12:08
[2017-05-08 14:16] LABS: PROTHROMBIN TIME - PATIENT 10.6 SEC (9.8-11.6)
[2017-05-08 14:34] LABS: % SATURATION IRON PROFILE 25.3 % (20-50); ALBUMIN 2.1 GM/DL (3.4-5.0); ALT (GPT) 123 U/L (12-78); AST (GOT) 272 U/L (15-37); BICARBONATE 23.4 MEQ/L (21.0-32.0); BLOOD UREA NITROGEN 24 MG/DL (7-18); CALCIUM 8.5 MG/DL (8.5-10.1); CHLORIDE 106 MEQ/L (98-107); CREATININE 0.81 MG/DL (0.60-1.30); GLOMERULAR FILTRATION RATE 92 ML/MIN (>89); GLUCOSE,RANDOM 90 MG/DL (74-106); IRON (FE) 50 MCG/DL (65-175); SODIUM (NA) 139 MEQ/L (136-145); TOTAL IRON BINDING CAPACITY 197 MCG/DL (250-450)
[2017-05-08 14:36] LABS: ALKALINE PHOSPHATASE 604 U/L (45-117); TOTAL BILIRUBIN ADULT 3.9 MG/DL (0.2-1.0); TOTAL PROTEIN 5.6 GM/DL (6.4-8.2)
--- NOTE | 2017-05-08 15:10 | HHI.PR ---
Subjective Subjective Notes Resting in bed Pain tolerable Hungry Objective Vitals/I&O Vital Signs Date Time Temp Pulse Resp B/P (MAP) Pulse Ox O2 Delivery O2 Flow Rate FiO2 05/08/17 12:00 98.1 49 17 199/91 (127) 96 188/79 (115) 05/07/17 20:11 Nasal Cannula 2.00 Labs Laboratory Tests Test 05/08/17 05:05 05/08/17 13:15 Blood Urea Nitrogen 27 24 Creatinine 0.88 0.81 Random Glucose 98 90 Total Protein 5.8 5.6 Albumin 2.1 2.1 Calcium Level 8.4 8.5 Alkaline Phosphatase 577 604 Aspartate Amino Transf (AST/SGOT) 235 272 Alanine Aminotransferase (ALT/SGPT) 102 123 Total Bilirubin 4.0 3.9 Sodium Level 138 139 Potassium Level 4.0 3.8 Chloride Level 107 106 Carbon Dioxide Level 24.3 23.4 Anion Gap 7 10 Estimat Glomerular Filtration Rate 84 92 Lipase 185 Prothrombin Time 10.6 Prothromb Time International Ratio 1.0 Iron Level 50 Total Iron Binding Capacity 197 Percent Iron Saturation 25.3 Cardiovascular: Regular Lungs: Clear Abdomen: Other (lap sites c/d/i; UBALDO with very minimal serous fluid ) Extremities: No edema A/P Assessment and Plan 76 year old male POD2 lap eber; POD1 ERCP -Liver enzymes trending down -Advance to regular diet -Pain control -IS -OOB and mobilize -DC IVF -Likely home tomorrow Attending Statement abdomen soft and non tender, drain removed. Hopeful for Dc tomorrow. The exam, history, and the medical decision-making described in the above note were completed with the assistance of the mid-level provider. I reviewed and agree with the findings presented. I attest that I had a [id number] encounter with the patient on the same day, and personally performed and documented my assessment and findings in the medical record. Re Calvillo May 08, 2017 15:09 Narinder Jones MD May 09, 2017 07:57
[2017-05-08] MEDS ORDERED: LISINOPRIL 10 MG TAB PO ONE (16:30)
[2017-05-08] MEDS ORDERED: OMEGA ACID ETHYL ESTERS PO SCH (21:00)
[2017-05-08] MEDS: ASPIRIN 81 MG CHEW TAB CHEW SCH (22:01)
[2017-05-09] VITALS (9 sets, daily range): BP systolic 146–194; BP diastolic 70–86; PULSE 43–51; RESP 16–21; TEMP 96.7–99.6; O2SAT 91–95
[2017-05-09] MEDS: ACETAMINOPHEN 1000 MG/100 ML 100 ML IV SCH ×5 (01:26→20:12)
[2017-05-09] MEDS: LEVOTHYROXINE SODIUM 75 MCG TAB PO SCH (05:33)
[2017-05-09] MEDS: SODIUM CHLORIDE 0.9% FLUSH 10 ML FLUSH IV FLUSH SCH ×2 (07:51→20:12)
[2017-05-09] MEDS: SERTRALINE HCL 50 MG TAB PO SCH (07:51)
[2017-05-09] MEDS: ATORVASTATIN 80 MG TAB PO SCH (07:52)
[2017-05-09] MEDS: LISINOPRIL 20 MG TAB PO SCH (07:52)
[2017-05-09] MEDS: PANTOPRAZOLE SODIUM 40 MG VIAL IV PUSH SCH (07:52)
[2017-05-09 08:49] LABS: ALBUMIN 1.9 GM/DL (3.4-5.0); ALT (GPT) 143 U/L (12-78); AST (GOT) 290 U/L (15-37); BICARBONATE 25.2 MEQ/L (21.0-32.0); BLOOD UREA NITROGEN 24 MG/DL (7-18); CALCIUM 8.3 MG/DL (8.5-10.1); CHLORIDE 106 MEQ/L (98-107); GLUCOSE,RANDOM 82 MG/DL (74-106); SODIUM (NA) 141 MEQ/L (136-145)
[2017-05-09 08:52] LABS: ALKALINE PHOSPHATASE 667 U/L (45-117); CREATININE 0.84 MG/DL (0.60-1.30); GLOMERULAR FILTRATION RATE 88 ML/MIN (>89); TOTAL BILIRUBIN ADULT 2.5 MG/DL (0.2-1.0); TOTAL PROTEIN 5.4 GM/DL (6.4-8.2)
[2017-05-09] MEDS ORDERED: SERT1POW3 PO (09:33)
--- NOTE | 2017-05-09 09:44 | HHI.GIFU ---
GI Follow-up Note Consult Follow-up Subjective: Patient laying in bed comfortably, no new complaints except, "just not feeling right" no fever or chills. abdo pain very mild at drain site. no diarrhea, no dysuria. no cough. Objective: PHYSICAL EXAMINATION: Vitals signs stable No fever HEENT: Pupils round and reactive to light; normocephalic; atraumatic; no jaundice. Throat is clear. NECK: Neck is supple, no JVD, no lymphadenopathy. CHEST: Chest is clear to auscultation and percussion. CARDIAC: Regular rate and rhythm with no murmur gallop or rubs. ABDOMEN: Soft, nondistended, nontender; no hepatosplenomegaly; bowel sounds are present in all four quadrants. EXTREMITIES: No clubbing, cyanosis, or edema. SKIN: Normal; no rash; no jaundice. SURVEY CHIEF: No focal deficits; alert and oriented times three. Available Data (labs, X- Rays, Procedures) : labs reviewed AST 290, ALT 143 Tbili 2.5 ALP 667 ASSESSMENT/PLAN: 1. Acute cholecystitis. s/p eber 2. Cbd stones, s/p ercp 3. Elevated lfts trending up; unclear etiology. ? medication induced, autoimmune, biliary path vs underlying infection. 4. Leukocytosis trending up unclear etiology PLAN: 1. CT scan of Abdo and pelvis with contrast 2. Monitor labs 3. Consider Starting empiric abx. broad spectrum ie Zosyn vs cipro/flagyl 4. would recommend hold off on discharge given the above findings. It was a pleasure seeing Kvng Bryant. Thank you for this consult. Entered by: Carola Silva MD May 09, 2017 09:44
[2017-05-09] MEDS ORDERED: SERTRALINE HCL 50 MG TAB PO ONE (10:00)
[2017-05-09 10:09] LABS: HEPATITIS B SURFACE ANTIGEN NEGATIVE (NEGATIVE); HEPATITIS C AB IgG REACTIVE (NEGATIVE)
[2017-05-09] MEDS ORDERED: DIATRIZOATE MEGLUM/DIATRIZOATE SOD 9 ML CUP PO ONE (10:15)
[2017-05-09 10:19] LABS: HEPATITIS A AB IGM NEGATIVE (NEGATIVE); HEPATITIS B CORE AB IGM NEGATIVE (NEGATIVE)
[2017-05-09 13:58] LABS: SMOOTH MUSCLE TOTAL AUTOABS Negative (Negative)
[2017-05-09 14:16] LABS: ALPHA-1-ANTITRYPSIN 324 mg/dL (100 - 190)
--- NOTE | 2017-05-09 14:29 | HHI.DS ---
Discharge Summary Admission Date May 06, 2017 at 18:36 Discharge Date: May 09, 2017 Admitting Diagnosis Brief History 76-year-old male with acute on chronic calculus cholecystitis CBC/BMP: 05/07/17 1335 05/09/17 0713 Significant Findings Laboratory Tests Test 05/07/17 13:35 05/08/17 05:05 05/08/17 13:15 05/09/17 07:13 White Blood Count 12.5 TH/MM3 (4.0-11.0) Red Blood Count 3.80 MIL/MM3 (4.50-5.90) Hemoglobin 11.5 GM/DL (13.0-17.0) Hematocrit 33.9 % (39.0-51.0) Neutrophils (%) (Auto) 89.7 % (16.0-70.0) Lymphocytes (%) (Auto) 4.3 % (9.0-44.0) Neutrophils # (Auto) 11.2 TH/MM3 (1.8-7.7) Lymphocytes # (Auto) 0.5 TH/MM3 (1.0-4.8) Blood Urea Nitrogen 26 MG/DL (7-18) 27 MG/DL (7-18) 24 MG/DL (7-18) 24 MG/DL (7-18) Random Glucose 108 MG/DL (74-106) Calcium Level 8.3 MG/DL (8.5-10.1) 8.4 MG/DL (8.5-10.1) 8.3 MG/DL (8.5-10.1) Total Protein 5.8 GM/DL (6.4-8.2) 5.6 GM/DL (6.4-8.2) 5.4 GM/DL (6.4-8.2) Albumin 2.1 GM/DL (3.4-5.0) 2.1 GM/DL (3.4-5.0) 1.9 GM/DL (3.4-5.0) Alkaline Phosphatase 577 U/L (45-117) 604 U/L (45-117) 667 U/L (45-117) Aspartate Amino Transf (AST/SGOT) 235 U/L (15-37) 272 U/L (15-37) 290 U/L (15-37) Alanine Aminotransferase (ALT/SGPT) 102 U/L (12-78) 123 U/L (12-78) 143 U/L (12-78) Total Bilirubin 4.0 MG/DL (0.2-1.0) 3.9 MG/DL (0.2-1.0) 2.5 MG/DL (0.2-1.0) Estimat Glomerular Filtration Rate 84 ML/MIN (>89) 88 ML/MIN (>89) Iron Level 50 MCG/DL (65-175) Total Iron Binding Capacity 197 MCG/DL (250-450) [id number] 324 mg/dL (100 - 190) Hepatitis C Antibody REACTIVE (NEGATIVE) PE at Discharge Resting in bed Cardio: RRR Resp: CTAB Abd: lap sites c/d/i; prior UBALDO site with dry dressing over Hospital Course This is a 76-year-old male with acute on chronic calculus cholecystitis. The patient was taken operating room for a laparoscopic cholecystectomy. Postop labs were obtained which showed elevated liver enzymes. Dr. Carson with Gastroenterology was consulted and an ERCP was completed. The patient's diet was advanced to a regular diet. The patient was able tolerate regular diet. The patient's pain was controlled using nonnarcotic pain medications. The patient will follow-up in the office on with Dr. Jones. Pt Condition on Discharge: Good Discharge Disposition: Discharge Home Discharge Instructions DIET: Follow Instructions for: As Tolerated, No Restrictions Activities you can perform: See Additionl Instruction Other Activity Instructions: Okay to shower; pat incisions dry; no baths Avoid heavy pushing pulling and lifting Re Calvillo May 09, 2017 14:29
[2017-05-09 16:29] LABS: ANA SCREEN NEG (NEG)
[2017-05-09] MEDS ORDERED: IOHEXOL 350 MG/ML 10 ML VIAL (for RAD DIAG) IVCONTRAST ONE (18:55)
--- NOTE | 2017-05-09 19:05 | RADRPT ---
EXAM DATE/TIME: 05/09/2017 18:51 [place] COMPARISON: CT ABDOMEN & PELVIS W CONTRAST, May 03, 2017, 4:28. INDICATIONS : Abdominal pain and elevated LFTs post cholecystectomy. IV CONTRAST: 70 cc Omnipaque 350 (iohexol) IV ORAL CONTRAST: Prescribed oral contrast ingested. RADIATION DOSE: 16.47 CTDIvol (mGy) MEDICAL HISTORY : Cardiovascular disease. Hypertension. Gastroesophageal reflux disease.prostate cancer SURGICAL HISTORY : CABG Cholecystectomy. ENCOUNTER: Initial ACUITY: 2 days PAIN SCALE: 6/10 LOCATION: abdomen TECHNIQUE: Volumetric scanning of the abdomen and pelvis was performed. Using automated exposure control and ad justment of the mA and/or kV according to patient size, radiation dose was kept as low as reasonably achievable to obtain optimal diagnostic quality images. DICOM format image data is available electro nically for review and comparison. FINDINGS: LOWER LUNGS: There is new consolidation in the right lower lobe and there are new small pleural effusions. LIVER: Homogeneous density without lesion. There is no dilation of the biliary tree. Patient status post ch olecystectomy small fluid in the region of the gallbladder fossa. Ascitic fluid is noted surrounding the liver margins. SPLEEN: Normal size without lesion. PANCREAS: Within normal limits. KIDNEYS: Normal in size and shape. There is no solid mass, stone or hydronephrosis. There are multiple bilate ral renal cysts. ADRENAL GLANDS: Within normal limits. VASCULAR: There is no aortic aneurysm. BOWEL/MESENTERY: The stomach is unremarkable in appearance. There are multiple loops of nondilated air-containing smal l bowel multiple small air-fluid levels. There is no free air. Contrast is noted throughout the colon . Scattered small diverticuli are present. There is no free intraperitoneal air or fluid. ABDOMINAL WALL: Within normal limits. RETROPERITONEUM: There is no lymphadenopathy. BLADDER: No wall thickening or mass. REPRODUCTIVE: Stable appearance with metallic fiducial markers. INGUINAL: There is no lymphadenopathy or hernia. MUSCULOSKELETAL: Within normal limits for patient age. CONCLUSION: 1. Status post cholecystectomy small amount of fluid in the gallbladder fossa which could be a normal postoperative finding. There is no evidence of biliary obstruction. 2. Small amount of ascitic fluid surrounding the liver. 3. Consolidation is now noted in the right lower lobe and there are small bilateral pleural effusions . 4. Bilateral renal cysts. 5. Mildly nonspecific, nonobstructive bowel gas pattern likely representing a postoperative ileus. Hernan Bond MD on May 09, 2017 at 18:58 Board Certified Radiologist. This report was verified electronically.
[2017-05-09] MEDS: ASPIRIN 81 MG CHEW TAB CHEW SCH (20:12)
[2017-05-10] VITALS: BP 153/71; PULSE 51; RESP 17; TEMP 98.7; O2SAT 91
[2017-05-10] MEDS: ACETAMINOPHEN 1000 MG/100 ML 100 ML IV SCH ×2 (03:12→08:30)
[2017-05-10] MEDS: LEVOTHYROXINE SODIUM 75 MCG TAB PO SCH (05:57)
[2017-05-10 08:00] VITALS: BP 173/82; PULSE 50; RESP 17; TEMP 98.7; O2SAT 94
[2017-05-10] MEDS: PANTOPRAZOLE SODIUM 40 MG VIAL IV PUSH SCH (08:29)
[2017-05-10] MEDS: ATORVASTATIN 80 MG TAB PO SCH (08:30)
[2017-05-10] MEDS: LISINOPRIL 20 MG TAB PO SCH (08:30)
[2017-05-10] MEDS: SERTRALINE HCL 50 MG TAB PO SCH (08:31)
[2017-05-10] MEDS: SODIUM CHLORIDE 0.9% FLUSH 10 ML FLUSH IV FLUSH SCH (09:00)
[2017-05-10 12:00] VITALS: BP 168/75; PULSE 64; RESP 16; TEMP 97.5; O2SAT 96
--- NOTE | 2017-05-10 12:25 | HHI.PR ---
Subjective Subjective Notes feels better, had a BM. Has no pain. Wants to go home, will use tylenol as needed. Objective Vitals/I&O Vital Signs Date Time Temp Pulse Resp B/P (MAP) Pulse Ox O2 Delivery O2 Flow Rate FiO2 05/10/17 09:42 14 05/10/17 08:00 98.7 50 173/82 (112) 94 05/09/17 17:32 Nasal Cannula 2.00 Abdomen: Non-distended, Non-tender, Other (drain removal site with yellow serous drainage, dressing changed, additional dressings provided to .) Extremities: No edema, Perfused A/P Assessment and Plan POD 3 lap eber with IOC, gangrenous cholecystitis and CBD stones. Persistent elevated LFTs. Hep C positive, he says he has been told that in the past, some confusion as to accuracy. Alpha 1 antitrypsin elevated, likely due to inflammation. Pt and want to go home. follow up with primary, Gi and surgery already arranged. No pain med needed. Regular diet, can shower, take umbilical dressing off in 4 days, steri strips off in one week. Narinder Jones MD May 10, 2017 12:25
--- NOTE | 2017-05-10 13:21 | HHI.GIFU ---
GI Follow-up Note Consult Follow-up Subjective: Patient laying in bed comfortably, no new complaints, no fever or chills, no cough, no n/v had bm today discussed labs, hep c ab positive. ct reviewed. in intra abdo process. ?new consolidation Objective: PHYSICAL EXAMINATION: Vitals signs stable No fever HEENT: Pupils round and reactive to light; normocephalic; atraumatic; no jaundice. Throat is clear. NECK: Neck is supple, no JVD, no lymphadenopathy. CHEST: Chest is clear to auscultation and percussion. CARDIAC: Regular rate and rhythm with no murmur gallop or rubs. ABDOMEN: Soft, nondistended, nontender; no hepatosplenomegaly; bowel sounds are present in all four quadrants. EXTREMITIES: No clubbing, cyanosis, or edema. SKIN: Normal; no rash; no jaundice. TECHNICAL SUPPORT SPECIALIST: No focal deficits; alert and oriented times three. Available Data (labs, X- Rays, Procedures) : reviewed ASSESSMENT/PLAN: 1. s/p lap eber 2. Elevated lfts 3. Hep c ab positive 4. new consolidation pneumonia vs atelectasis (no clear s/p of pneumonia) PL:AN: 1. Pt advised to follow up with Dr Chadwick in 2-3 wks 2. Will follow and work up elevated lfts as outpt 3. Will sign off call for questions. discussed with nurse It was a pleasure seeing Kvng Bryant. Thank you for this consult. Entered by: Carola Silva MD May 10, 2017 13:21
[2017-05-10 14:43] LABS: BASOPHIL % 0.4 % (0.0-2.0); EOSINOPHIL # 0.2 TH/MM3 (0-0.4); EOSINOPHIL % 1.9 % (0.0-4.0); HEMATOCRIT 33.9 % (39.0-51.0); HEMOGLOBIN 11.5 GM/DL (13.0-17.0); LYMPHOCYTE # 1.1 TH/MM3 (1.0-4.8); MEAN CELL VOLUME 90.8 FL (80.0-100.0); MEAN CORPUSCULAR HEMOGLOBIN 30.7 PG (27.0-34.0); MEAN CORPUSCULAR HGB CONC 33.8 % (32.0-36.0); MEAN PLATELET VOLUME 9.1 FL (7.0-11.0); MONO % 7.3 % (0.0-8.0); MONOCYTE # 0.7 TH/MM3 (0-0.9); NEUT % 79.4 % (16.0-70.0); PLATELET COUNT 277 TH/MM3 (150-450); RED BLOOD COUNT 3.73 MIL/MM3 (4.50-5.90); RED CELL DISTRIBUTION WIDTH 13.8 % (11.6-17.2); WHITE BLOOD COUNT 10.1 TH/MM3 (4.0-11.0)
[2017-05-10 15:04] LABS: ALBUMIN 1.9 GM/DL (3.4-5.0); AST (GOT) 195 U/L (15-37); BICARBONATE 25.3 MEQ/L (21.0-32.0); BLOOD UREA NITROGEN 15 MG/DL (7-18); CALCIUM 8.1 MG/DL (8.5-10.1); CHLORIDE 106 MEQ/L (98-107); CREATININE 0.69 MG/DL (0.60-1.30); GLOMERULAR FILTRATION RATE 111 ML/MIN (>89); GLUCOSE,RANDOM 95 MG/DL (74-106); SODIUM (NA) 140 MEQ/L (136-145)
[2017-05-10 15:07] LABS: ALKALINE PHOSPHATASE 797 U/L (45-117); ALT (GPT) 121 U/L (12-78); TOTAL BILIRUBIN ADULT 1.9 MG/DL (0.2-1.0); TOTAL PROTEIN 5.4 GM/DL (6.4-8.2)
[2017-05-10 16:12] LABS: BANDS 5 % (0-6); LYMPHOCYTES 9 % (9-44); METAMYELOCYTES 2 % (0-1); MONOCYTES 5 % (0-8); MYELOCYTES 4 % (0-0); NEUTROPHIL # MANUAL DIFF 8.6 TH/MM3 (1.8-7.7); POLYS (SEG NEUTROPHILS) 74 % (16-70)
[2017-05-11 15:51] LABS: CERULOPLASMIN 33 mg/dL (18-36)
[2017-05-14 03:50] LABS: MITOCHONDRIAL ABS LESS THAN 20.0 U (<=20.0)
== END 2017-05-10 14:09 | disposition home or self-care (01) | DRG 419 ==
LOC: N07B 12:13 → INTOOBSV 12:13 → OBSVTOIN 18:36
PROVIDERS: ADMIT Surgery Trauma Surgery; ATTEND Surgery Trauma Surgery
PROC: 0WQF0ZZ Repair Abdominal Wall, Open Approach (ICD-10-PCS; 2017-05-06)
PROC: BF131ZZ Fluoroscopy of Gallbladder and Bile Ducts using Low Osmolar Contrast (ICD-10-PCS; 2017-05-06)
PROC: 0FT44ZZ Resection of Gallbladder, Percutaneous Endoscopic Approach (ICD-10-PCS; principal; 2017-05-06 16:17)
PROC: 0FC98ZZ Extirpation of Matter from Common Bile Duct, Via Natural or Artificial Opening Endoscopic (ICD-10-PCS; 2017-05-07)
DX: K80.67 Calculus of gallbladder and bile duct with acute and chronic cholecystitis with obstruction (principal); I10 Essential (primary) hypertension; E03.9 Hypothyroidism, unspecified; I25.10 Atherosclerotic heart disease of native coronary artery without angina pectoris; Z95.1 Presence of aortocoronary bypass graft; B19.20 Unspecified viral hepatitis C without hepatic coma; K42.9 Umbilical hernia without obstruction or gangrene; K82.8 Other specified diseases of gallbladder; R91.8 Other nonspecific abnormal finding of lung field
CPT/HCPCS: 74177; 74300; 74330; 80048; 80053; 80074; 82103; 82390; 83520; 83540; 83550; 83690; 85007; 85025; 85027; 85610; 86038; 86255; 88304; 94150; C1769; C9113; J0131; J0360; J0690; J1100; J2270; J2370; J2405; J2550; J2710; J7030; J7120; Q9963; Q9967